=== PATIENT | male | born 1980 | race Caucasian/White ===

== ENCOUNTER 2024-06-22 07:44 | Outpatient (CLI) | payer BC, SELFPAY | END 2024-06-22 07:45 | disposition home or self-care (01) | PROVIDERS: PCP Physician Assistant Medical; Visit Provider Physician Assistant Medical | DX: Z13.6 Encounter for screening for cardiovascular disorders (principal); Z13.29 Encounter for screening for other suspected endocrine disorder; Z13.9 Encounter for screening, unspecified | CPT/HCPCS: 80053; 80061; 84443; 85027 ==

== ENCOUNTER 2024-07-12 19:20 | Outpatient (CLI) | payer BC, SELFPAY ==
--- NOTE | 2024-08-09 08:28 | W.PM.SLEEP ---
Sleep Study Details Details Interpreting Provider: Ajay Date of Sleep Study: 07/12/24 Sleep Study Details: STUDY TYPE:? Home unattended ? BMI:? 35 ORDERING PROVIDER:Arun Moss INDICATION:? Concern about sleep apnea ? SLEEP SUMMARY:? 369 minutes monitored RESPIRATORY SUMMARY:? AHI 20.3, left lateral 6.1, supine 60.1, right lateral 6.6 Low oxygen 86 1.3% of study oxygen less than 90% Snoring 96.2% PERIODIC LIMB MOVEMENTS OF SLEEP:? Not record CARDIAC:? 44-105, mean 57.2 beats per minute IMPRESSION:? Moderate obstructive sleep apnea with supine position dependency RECOMMENDATION: Treatment options include CPAP AutoSet 4-17, dental appliance, weight loss and/or airway expansion surgery.
== END 2024-07-12 19:21 | disposition home or self-care (01) ==
LOC: SLEEP 19:21
PROVIDERS: PCP Physician Assistant Medical; Visit Provider Otolaryngology
DX: G47.33 Obstructive sleep apnea (adult) (pediatric) (principal)
CPT/HCPCS: 95806